=== PATIENT | male | born 1965 | race Caucasian/White ===

== ENCOUNTER 2016-08-11 16:25 | Emergency (ER) | payer BC ==
[2016-08-11] MEDS ORDERED: SULFAMETHOXAZOLE/TRIMETHOPRIM 1 TAB TABLET ONE (19:31)
--- OUTSIDE RECORDS SUMMARY | 2016-08-11 22:41 | XMS REPORT | Continuity of Care Document ---
:1965 Author Organization [facility] ([facility]) Address [address] [place] [place] [address] Phone [phone] Care Team Providers Name Role Phone Christopher Balderas Primary Care Provider [phone] Source Comments This disclosure is being made pursuant to the Care Everywhere program, applicable federal and state laws, and may not contain all informaitonavailable regarding this patient.[facility] ([facility]) Active Allergies and Adverse Reactions Allergen Noted Date Severity Reactions Comments Azithromycin 02/11/2009 Anaphylactic Shock Current Medications Prescription Sig. Disp. Refills Start Date End Date Status DULoxetine take 60 mg by Active (CYMBALTA) 60 mg mouth daily. capsule LACTOBACILLUS take 1 Tab by Active ACIDOPHILUS mouth daily. (ACIDOPHILUS PO) CALCIUM take 2 Tabs by Active CARBONATE/VITAMIN mouth daily. D3 (CALCIUM 600 + D PO) ascorbic acid take 2 Tabs by Active (ASCORBIC ACID) 500 mouth daily. mg tablet [place]-3 Fatty Acids take 2 Tabs by Active 1,000 mg Cap mouth daily. Potassium 99 mg Tab take 1 Tab by Active mouth daily. MULTIVITAMINS take 1 Tab by Active W-MINERALS (MEN'S mouth daily. ONE DAILY PO) HYDROcodone-acetami take 0.5 Tabs by Active nophen (VICODIN) mouth every 6 5-500 mg per tablet hours as needed. gabapentin 600 mg Take 600 mg by Active tablet mouth 3 times daily. psyllium Take 2 Wafers by Active (METAMUCIL) 1.7 g mouth daily. oral wafer naproxen 250 mg Take 220 mg by Active tablet mouth daily. melatonin PO Take 5 mg by Active mouth. ferrous sulfate PO Take 65 mg by Active mouth. promethazine 25 mg insert 1 30 Suppository 11 10/02/2013 Active suppository Suppository rectally every 6 hours as needed. Indications: nausea from migraine Active Problems Problem Noted Date Migraine, unspecified, without mention of intractable migraine without 2013 mention of status migrainosus Head trauma 10/03/2013 Asthma, in childhood 05/16/2009 Seasonal allergic rhinitis 05/16/2009 Overview: Most symptomatic in the Fall. Diffuse idiopathic skeletal hyperostosis 05/16/2009 Overview: Per thoracic spine films 04/2009. N.B.: normal SI joints, NO findings to suggest ankylosing spondylitis. Prostatitis 05/15/2009 Depression 05/15/2009 Overview: Well controlled with medication. Celiac disease 05/15/2009 Overview: Positive tTG, daughter has celiac disease, but patient small bowel biopsy was non-confirmatory. Symptoms of diarrhea, bloating, responded to gluten free diet. Abdominal pain, right upper quadrant 10/12/2006 Immunizations Name Dates Previously Given Next Due Influenza, unspecified 02/13/2009 Social History Tobacco Use Types Packs/Day Years Used Date Never Smoker Smokeless Tobacco: Current User Comments:Chewing tobacco, trying to quit Alcohol Use Drinks/Week oz/Week Comments No 0.0 none for 8 months as of 04/2009 Last Filed Vital Signs Vital Sign Reading Time Taken Blood Pressure 133/73 10/02/2013 2:12 PM CDT Pulse 75 10/02/2013 2:12 PM CDT Temperature 36.5 C (97.7 F) 05/16/2009 10:27 AM [employer] Respiratory Rate - - Height 1.85 m (6' 0.83") 05/16/2009 10:27 AM [employer] Weight 91.3 kg (201 lb 4.5 oz) 10/02/2013 2:12 PM CDT Body Mass Index 26.68 10/02/2013 2:12 PM CDT Oxygen Saturation - - Plan of Care Health Maintenance Due Date Last Done Comments Hepatitis B Vaccine (1 of 3 - Primary Series) 1965 Tdap Vaccine 12/27/1974 Lipid Disorder Screening 12/27/1981 MMR Vaccine 12/27/1981 Td Vaccine 12/27/1981 Pneumococcal Vaccine (1 of 1 - PPSV23) 12/27/1982 Prostate Cancer Screening 12/27/2013 Colonoscopy 09/16/2014 09/16/2004 Influenza Vaccine: Seasonal (#1) 12/16/2015 02/13/2009 HCV Screening Completed 09/18/2004 Results from Last 3 Months Not on file
[2016-08-12] LABS: Hematocrit 43.2 % (42.0-52.0); Mean Cell Volume 91.1 fl (78-100); Mean Corpuscular Hemoglobin 31.6 pg (27-31); Mean Corpuscular Hgb Conc 34.7 g/dl (32-36); Mean Platelet Volume 10.2 fl (6.0-9.5); Neutrophil % 36.2 % (42-75.0); Platelet Count 238 K/mm3 (150-450); Red Blood Count 4.74 M/mm3 (4.7-6.0); Red Cell Distribution Width 12.5 % (11.5-14.0); White Blood Count 5.4 K/mm3 (4.0-10.5)
[2016-08-12 00:02] VITALS: BP 137/77
[2016-08-12 00:33] LABS: ALT 30 U/L (19-67); AST 17 U/L (0-48); Albumin * 4.3 gm/dl (3.4-5.0); Alkaline Phosphatase * 66 U/L (50-170); Anion Gap 14.7 mmol/L (6.8-13.8); BUN/Creatinine Ratio 22.5 (9.0-21.6); Bilirubin, Total 0.5 mg/dL (0.0-1.1); Blood Urea Nitrogen 23 mg/dL (6-23); Calcium * 9.6 mg/dL (7.9-10.9); Carbon Dioxide 28.3 mmol/L (24-32.6); Chloride 107 mmol/L (97-106); Glucose * 90 mg/dL (70-110); Sodium 146 mmol/L (132-142); Total Protein 7.6 gm/dL (6.2-8.2)
--- NOTE | 2016-09-14 15:16 | ERNOTE ---
Medical Problem HPI - General Chief Complaint: General Assessment Time Seen by Provider: 08/11/16 17:50 Source: patient Exam Limitations: no limitations - Immun/Allergies/Home Medications Immunizations: IMMUNIZATION HX Immunizations Up to Date Yes History of Influenza Vaccine Yes Hx Pneumococcal Vaccination No Allergies/Adverse Reactions: Allergies azithromycin Adverse Reaction (Intermediate, Verified 08/11/16 16:36) TACHYCARDIA, NAUSEA oxycodone HCl [From Percocet] Adverse Reaction (Intermediate, Verified 08/11/16 16:36) extreme itching Home Medications: HOME MEDICATIONS Gabapentin [Neurontin] 300 mg PO HS 03/08/13 [Last Taken Unknown] Duloxetine HCl [Cymbalta] 90 mg PO DAILY 03/18/13 [Last Taken Unknown] Lorazepam [Ativan] 2 mg PO DAILY 06/14/15 [Last Taken Unknown] - History of Present History Timing: gone now Severity: mild Review of Systems - Review of Systems Constitutional: Present: no symptoms reported EYE: Present: no symptoms reported ENT: Present: no symptoms reported Respiratory: Present: no symptoms reported Cardiology: Present: chest pain Gastrointestinal/Abdominal: Present: no symptoms reported Genitourinary: Present: no symptoms reported Musculoskeletal: Present: other - left sided chest pain Skin: Present: no symptoms reported Neurological: Present: no symptoms reported Endocrine: Present: no symptoms reported Hematologic/Lymphatic: Present: no symptoms reported Psych: Present: no symptoms reported - Patient's Past Medical History Patient History - Medical: Headache, Other Patient History - Cardiac/Respiratory: No pertinent hx Patient History - Cancer: No Hx of Cancer Patient History - Surgical Procedures: Appendectomy, Cholecystectomy, Other Patient History - Other: None - Social History Living Situations: home Abuse History: No History of abuse Psych History: Hx of Psychiatric Tx Smoking Status: Never smoker Have you smoked in the past 12 months: No Do you dip or chew tobacco: Yes Alcohol Use: none Drug Use: none - Immunizations Immunizations Up to Date: Yes Hx Pneumococcal Vaccination: No History of Influenza Vaccine: Yes Physical Exam - Physical Exam General Appearance: Present: wd/wn, alert, no apparent distress Eye Exam: Normal inspection: bilateral, PERRL: bilateral Ears, Nose, Throat: Present: normal ENT inspection, H, normal pharynx Neck: Present: normal inspection, nontender Respiratory: Present: no respiratory distress, normal breath sounds, no accessory muscle use, chest nontender, lungs clear Cardiovascular/Chest: Present: regular rate, rhythm, no murmur, normal peripheral pulses Gastrointestinal/Abdominal: Present: normal bowel sounds, nontender, nondistended, soft, no organomegaly Rectal Exam: Present: deferred Back Exam: Present: normal inspection, normal range of motion Extremity Exam: Present: normal inspection, non-tender, no edema, normal range of motion Neurological Exam: Present: alert, oriented, normal mood/affect Skin Exam: Present: normal color, warm/dry Lymphatic Exam: Present: no adenopathy ED Progress - Results and Orders Patient's Lab Results:: I have reviewed the patient's lab results. - Vital Signs Patient's Vital Signs:: I have reviewed the patient's vital signs. - Progress/Reassessment Chief Complaint: General Assessment Departure - Departure Clinical Impression: Chest wall pain Disposition: Home self-care Condition: Stable Referrals: Coby Iverson MD [Primary Care Provider] -
== END 2016-08-11 19:30 | disposition home or self-care (01) ==
LOC: ER 16:25
DX: I80.8 Phlebitis and thrombophlebitis of other sites (principal); R07.89 Other chest pain